=== PATIENT | female | born 1980 | race Caucasian/White ===

== ENCOUNTER 2017-08-24 20:43 | Emergency (ER) | payer BC ==
[2017-08-24 21:00] VITALS: BP 126/78
--- NOTE | 2017-08-24 21:16 | ED ---
Lower Extremity - HPI Summary HPI Summary: 37 yr old female with the complaint of bilateral lower extremity edema, and aching, right leg more than left. No long trips recently. She had multiple mosquito bites to her legs over the weekend. Denies SOB, CP. She has had swelling and some itching as well to the legs. - History of Current Complaint Chief Complaint: [place] Stated Complaint: INSECT BITES Time Seen by Provider: 08/24/17 20:52 Hx Last Menstrual Period: 08/15/17 Pain Intensity: 3 - Allergies/Home Medications Allergies/Adverse Reactions: Allergies Allergy/AdvReac Type Severity Reaction Status Date / Time No Known Allergies Allergy Verified 08/24/17 21:00 Home Medications: Home Medications Multivit with Calcium,Iron,Min [Multiple Vitamins For Women] 1 tab PO DAILY [History Confirmed 08/24/17] diphenhydrAMINE HCl [Benadryl Allergy] 25 mg PO Q6HR PRN 08/24/17 [History Confirmed 08/24/17] PMH/Surg Hx/FS Hx/Imm Hx Endocrine/Hematology History: Denies: Hx Diabetes, Hx Thyroid Disease Cardiovascular History: Denies: Hx Hypertension Respiratory History: Denies: Hx Asthma, Hx Chronic Obstructive Pulmonary Disease (COPD) GI History: Denies: Hx Ulcer - Surgical History Surgery Procedure, Year, and Place: c section 2007 Infectious Disease History: No Infectious Disease History: Denies: Hx Hepatitis, Hx Human Immunodeficiency Virus (HIV), Traveled Outside the [place] in Last 30 Days - Family History Known Family History: Positive: Unknown - Social History Occupation: Employed Full-time Lives: With Family Alcohol Use: Occasionally Substance Use Type: Reports: None Smoking Status (MU): Never Smoked Tobacco Have You Smoked in the Last Year: No Review of Systems Constitutional: Negative Positive: Edema - bilateral lower legs All Other Systems Reviewed And Are Negative: Yes Physical Exam Triage Information Reviewed: Yes Vital Signs On Initial Exam: Initial Vitals Temp Pulse Resp BP Pulse Ox 99.1 F 61 14 126/78 100 08/24/17 20:50 08/24/17 20:50 08/24/17 20:50 08/24/17 20:50 08/24/17 20:50 Vital Signs Reviewed: Yes Appearance: Positive: Well-Appearing, No Pain Distress Skin: Positive: Warm, Skin Color Reflects Adequate Perfusion Head/Face: Positive: Normal Head/Face Inspection Respiratory/Lung Sounds: Positive: Clear to Auscultation, Breath Sounds Present Cardiovascular: Positive: RRR. Negative: Murmur Abdomen Description: Negative: Distended Musculoskeletal: Positive: Strength/ROM Intact, Edema Left - bilateral lower leg edema right greater than left without cellulitis., Edema Right Neurological: Positive: Sensory/Motor Intact, Alert, Oriented to Person Place, Time, CN Intact II-III, Normal Gait, Speech Normal Psychiatric: Positive: Normal Diagnostics - Vital Signs Vital Signs Temp Pulse Resp BP Pulse Ox 08/24/17 20:50 99.1 F 61 14 126/78 100 - Laboratory Lab Statement: Any lab studies that have been ordered have been reviewed, and results considered in the medical decision making process. Lower Extremity Course/Dx - Course Course Of Treatment: 37 yr old female with leg swelling. Recommend go to ER now for further evaluation and rule out DVT. She states she will drive her self to ER for further evaluation. - Diagnoses Provider Diagnoses: Bilateral leg edema Discharge - Sign-Out/Discharge Documenting (check all that apply): Discharge/Admit/Transfer - Discharge Plan Condition: Good Disposition: HOME Patient Education Materials: Leg Edema (ED) Referrals: Jazmin North MD [Primary Care Provider] - Additional Instructions: You need to go to the ER immediately upon leaving here to have further evaluation of your leg for swelling. A blood clot is a possibility that needs to be ruled out with a venous doppler of the leg. - Billing Disposition and Condition Condition: GOOD Disposition: HOME
== END 2017-08-24 21:15 | disposition home or self-care (01) ==
LOC: UCCORT 20:43
DX: R60.9 Edema, unspecified (principal)
CPT/HCPCS: 99212; G0463